=== PATIENT | female | born 1985 | race Caucasian/White ===

== ENCOUNTER 2017-08-13 08:10 | Inpatient (IN) | payer OTHER ==
--- NOTE | 2017-08-13 13:22 | HP ---
General Information - General Information Maternal Age: 32 Grav: 4 Para: 2 SAB: 1 IEA: 0 Estimated Due Date: 08/22/17 Determined By: LMP Gestational Age in Weeks and Days: 38 Weeks and 5 Days Maternal Blood Type and Rh: O Positive - Results this Serology/RPR Result: Non-Reactive Rubella Result: Immune HBsAg Result: Negative HIV Result: Negative GBS Culture Result: Negative Past Medical History Delivery History: Hx Uncomplicated Vaginal Delivery Pertinent Past Medical History: See Records - Anxiety Past Medical History Comment: Anxiety Pertinent Past Surgical History: None Pertinent Family History: See Records - Antepartal Records Antepartal Records: Reviewed, Complicated by: - Thrombocytopenia gestational Review of Systems Constitutional: Comfortable CV Complaint: No Respiratory: Shortness of Breath: No Gastrointestinal: No Nausea/Vomiting, Normal Bowel Movement Genitourinary: Leaking Fluid, No Dysuria, No Bleeding Musculoskeletal: No Complaint Neurological: No Headache, No Visual Changes Movement: Normal Exam Vital Signs 08/13/17 08:20 Temperature 98.8 F Pulse Rate 77 Respiratory 20 Rate Blood Pressure 111/75 (mmHg) O2 Sat by Pulse 100 Oximetry Lab Values - Entire Visit: Laboratory Tests 08/13/17 08:33 Vag Amniotic Fld Detect Positive - Measurements Height: 5 ft 5 in Weight: 187 lb Weight in lbs: 187.306751 Body Mass Index (BMI): 31.1 Pre- Weight: 164 lb Weight Gained This : 23 lbs and 0 ozs - Exam Abdomen: No Upper Quadrant Pain Breast: Breast Exam Deferred CVA: No CVA Tenderness Extremities: No Edema Heart: Normal Rhythm/Heart Sounds HEENT: No Significant Findings Lungs: Clear Bilaterally Rectal: Rectal Exam Deferred Targeted Exam Findings See L&D Outpatient Visit Provider Note for Findings: N/A Cervical Exam: 1cm Effacement: <50% Station: -2 Presenting Part: Vertex Membrane Status: SROM Amniotic Fluid Evaluation: Positive ROM Plus Bleeding/Discharge: None EFM Findings - External Monitor Findings Baseline Heart Rate: 130 External Monitor Findings: Accelerations Present, No Pattern of Variable or Late Decelerations Contractions: Irregular Assessment/Plan - Reason for Visit Reason for Visit: at 38 5/7 weeks with SROM (Premature ruptured membranes), GBS negative. Patient desires spontaneous labor. - Obstetrical Risk Factors Risk Factors Comment: Gestational Thrombocytopenia - Plan Plan: Observe, Early Labor - Date/Time of Admission Date of Admission: 08/13/17 Time of Admission: 09:00
[2017-08-13 13:38] LABS: Hematocrit 37 % (35-47); Hemoglobin 12.4 g/dl (12.0-16.0); Mean Corpuscular HGB Conc 34 g/dl (31-36); Mean Corpuscular Hemoglobin 30 pg (27-31); Mean Corpuscular Volume 90 fL (80-97); Platelet Count 116 10^3/ul (150-450); Red Blood Count 4.11 10^6/ul (4.00-5.40); Red Cell Distribution Width 13 % (10.5-15); White Blood Count 8.8 10^3/ul (3.5-10.8)
[2017-08-13 13:55] LABS: ABS Basophils 0.1 10^3/ul (0-0.2); ABS Eosinophils 0.1 10^3/ul (0-0.6); ABS Lymphocytes 1.8 10^3/ul (1.0-4.8); ABS Monocytes 0.4 10^3/ul (0-0.8); ABS Neutrophils 6.3 10^3/ul (1.5-7.7); ABS Nucleated RBC 0 10^3/ul; Eosinophil % 1.4 % (0-6); Lymphocyte % 20.1 % (25-47); Nucleated Red Blood Cells % 0.1
[2017-08-13] MEDS ORDERED: Oxytocin in LR* 20 UNITS/1,000 ML BAG IVPB SCH (20:00)
[2017-08-14] MEDS ORDERED: Acetaminophen TAB* 325 MG PO PRN (02:03)
[2017-08-14] MEDS ORDERED: Witch Hazel PAD* JAR TOPICAL PRN (02:03)
[2017-08-14] MEDS ORDERED: Glycerin ADULT SUPP PR PRN (02:03)
[2017-08-14] MEDS ORDERED: Witch Hazel PAD* JAR ONE (03:22)
[2017-08-14] MEDS ORDERED: Dibucaine 1% 28.35 GM TUBE ONE (03:22)
[2017-08-14] MEDS ORDERED: Ibuprofen TAB* 600 MG ONE (03:51)
[2017-08-14] MEDS: Ibuprofen TAB* 600 MG PO PRN ×3 (03:52→20:21)
--- NOTE | 2017-08-14 05:37 | PROCNOTE ---
[facility] OB: Delivery Note - Delivery A Date of : 08/14/17 Time of : 01:45 Sex: Male Weight at : 7 lb 5 oz Score 1 Minute: 8 Score 5 Minutes: 9 Gestational Age in Weeks and Days at Delivery: 38 Weeks and 6 Days Delivery Method: Spontaneous Vaginal Labor: Spontaneous Amniotic Fluid: Clear Anesthesia/Analgesia: None Delivered By: Avel Claros - Nursery Level of Nursery: Regular/Bedside - Perineum Perineal Injury: None/Intact, 2nd Degree - repaired with 30 polysorb suture - Events Delivery Events of Note: Pitocin During Labor
[2017-08-14] MEDS: Docusate CAP* 100 MG PO SCH ×3 (08:13→20:20)
[2017-08-14] MEDS ORDERED: Simethicone TAB* 80 MG TAB.CHEW PO SCH (08:30)
[2017-08-14] MEDS: Dibucaine 1% 28.35 GM TUBE PR PRN (20:21)
[2017-08-15] MEDS: Ibuprofen TAB* 600 MG PO PRN (04:45)
[2017-08-15 07:11] LABS: Hematocrit 31 % (35-47); Hemoglobin 10.6 g/dl (12.0-16.0); Mean Corpuscular HGB Conc 34 g/dl (31-36); Mean Corpuscular Hemoglobin 30 pg (27-31); Mean Corpuscular Volume 89 fL (80-97); Mean Platelet Volume 10.8 um3 (7.4-10.4); Platelet Count 105 10^3/ul (150-450); Red Blood Count 3.48 10^6/ul (4.00-5.40); Red Cell Distribution Width 13 % (10.5-15); White Blood Count 7.3 10^3/ul (3.5-10.8)
[2017-08-15 07:38] LABS: ABS Basophils 0.1 10^3/ul (0-0.2); ABS Eosinophils 0.1 10^3/ul (0-0.6); ABS Lymphocytes 1.7 10^3/ul (1.0-4.8); ABS Monocytes 0.4 10^3/ul (0-0.8); ABS Neutrophils 5.1 10^3/ul (1.5-7.7); ABS Nucleated RBC 0 10^3/ul; Eosinophil % 1.6 % (0-6); Lymphocyte % 23.2 % (25-47); Nucleated Red Blood Cells % 0
[2017-08-15] MEDS: Docusate CAP* 100 MG PO SCH ×3 (08:16→20:28)
[2017-08-15] MEDS ORDERED: Ferrous Gluconate TAB* 324 MG TAB PO SCH (09:00)
[2017-08-15] MEDS ORDERED: Omeprazole CAP* 20 MG ONE (20:38)
[2017-08-15] MEDS: Omeprazole CAP* 20 MG PO SCH (20:46)
[2017-08-15] MEDS ORDERED: Omeprazole CAP* 20 MG PO SCH (21:00)
[2017-08-16 07:44] VITALS: BP 123/69
[2017-08-16] MEDS: Docusate CAP* 100 MG PO SCH (07:51)
[2017-08-16] MEDS: Omeprazole CAP* 20 MG PO SCH (07:51)
[2017-08-16] MEDS: Ibuprofen TAB* 600 MG PO PRN (07:51)
[2017-08-16] MEDS: Dibucaine 1% 28.35 GM TUBE PR PRN (11:16)
== END 2017-08-16 11:43 | disposition home or self-care (01) | DRG 560 ==
LOC: MCHOBOUT 08:10 → MCHOB 09:09
PROVIDERS: ADMIT Obstetrics & Gynecology; ATTEND Obstetrics & Gynecology
PROC: 4A1HXCZ Monitoring of Products of Conception, Cardiac Rate, External Approach (ICD-10-PCS; principal; 2017-08-13)
PROC: 3E033VJ Introduction of Other Hormone into Peripheral Vein, Percutaneous Approach (ICD-10-PCS; 2017-08-13)
PROC: 10E0XZZ Delivery of Products of Conception, External Approach (ICD-10-PCS; 2017-08-13)
PROC: 0KQM0ZZ Repair Perineum Muscle, Open Approach (ICD-10-PCS; 2017-08-14)
DX: O42.02 Full-term premature rupture of membranes, onset of labor within 24 hours of rupture (principal); O99.12 Other diseases of the blood and blood-forming organs and certain disorders involving the immune mechanism complicating childbirth; D69.6 Thrombocytopenia, unspecified; O69.2XX0 Labor and delivery complicated by other cord entanglement, with compression, not applicable or unspecified; O70.1 Second degree perineal laceration during delivery; Z3A.38 38 weeks gestation of pregnancy; Z37.0 Single live birth
CPT/HCPCS: 36415; 84112; 85025; 86850; 86900; 86901; A9270-GY